=== PATIENT | female | born 1990 | race Caucasian/White ===

== ENCOUNTER 2016-12-24 23:39 | Emergency (ER) | payer OTHER | END 2016-12-25 03:25 | disposition home or self-care (01) | LOC: ER 23:39 | DX: N20.0 Calculus of kidney (principal); J20.9 Acute bronchitis, unspecified; F41.9 Anxiety disorder, unspecified; F17.210 Nicotine dependence, cigarettes, uncomplicated; Z91.010 Allergy to peanuts; Z91.041 Radiographic dye allergy status; Z91.018 Allergy to other foods; Z88.8 Allergy status to other drugs, medicaments and biological substances | CPT/HCPCS: 36415; 96361; 96374; 96375; 96376; J1885 ==

== ENCOUNTER 2017-01-06 08:37 | Emergency (ER) | payer OTHER | END 2017-01-06 15:35 | disposition home or self-care (01) | LOC: ER 08:37 | DX: N13.2 Hydronephrosis with renal and ureteral calculous obstruction (principal); F41.9 Anxiety disorder, unspecified; F17.210 Nicotine dependence, cigarettes, uncomplicated; Z87.442 Personal history of urinary calculi; Z91.010 Allergy to peanuts; Z91.041 Radiographic dye allergy status; Z91.018 Allergy to other foods; Z88.8 Allergy status to other drugs, medicaments and biological substances | CPT/HCPCS: 36415; 96361; 96365; 96375; 96376; J0696; J1200; J1885; J2060 ==

== ENCOUNTER → 2017-01-15 | Day surgery (SDC) | payer OTHER | END | disposition home or self-care (01) | LOC: SDC 09:36 | DX: N13.2 Hydronephrosis with renal and ureteral calculous obstruction (principal); N28.89 Other specified disorders of kidney and ureter; J45.909 Unspecified asthma, uncomplicated; F17.210 Nicotine dependence, cigarettes, uncomplicated; Z90.49 Acquired absence of other specified parts of digestive tract; Z79.899 Other long term (current) drug therapy; Z88.5 Allergy status to narcotic agent; Z88.8 Allergy status to other drugs, medicaments and biological substances; Z91.041 Radiographic dye allergy status; Z87.440 Personal history of urinary (tract) infections; Z86.69 Personal history of other diseases of the nervous system and sense organs | CPT/HCPCS: C1758; C1894; C2617; J1885; J2704; J2765; Q9967 ==

== ENCOUNTER 2017-01-16 18:03 | Observation (INO) | payer OTHER ==
[~2017-01-16] VITALS: Ht 170.2 cm; Wt 65.3 kg
== END 2017-01-18 15:45 | disposition home or self-care (01) ==
LOC: ER 18:03 → MED 21:47
PROVIDERS: ADMIT Internal Medicine
DX: N20.0 Calculus of kidney (principal); D72.829 Elevated white blood cell count, unspecified; E83.42 Hypomagnesemia; F41.9 Anxiety disorder, unspecified; F17.210 Nicotine dependence, cigarettes, uncomplicated; Z79.2 Long term (current) use of antibiotics; Z79.891 Long term (current) use of opiate analgesic; Z79.899 Other long term (current) drug therapy; Z90.49 Acquired absence of other specified parts of digestive tract; Z98.890 Other specified postprocedural states
CPT/HCPCS: 36415; 96361; 96365; 96372; 96374; 96375; 96376; C1894; G0378; J0696; J1885; J2060; J2704; Q9967

== ENCOUNTER 2017-01-19 22:49 | Emergency (ER) | payer OTHER | END 2017-01-20 01:10 | disposition home or self-care (01) | LOC: ER 22:49 | DX: R10.31 Right lower quadrant pain (principal); R10.32 Left lower quadrant pain; F41.9 Anxiety disorder, unspecified; F17.210 Nicotine dependence, cigarettes, uncomplicated; Z87.442 Personal history of urinary calculi; Z98.890 Other specified postprocedural states; Z90.49 Acquired absence of other specified parts of digestive tract; Z88.5 Allergy status to narcotic agent; Z91.010 Allergy to peanuts; Z91.041 Radiographic dye allergy status; Z91.048 Other nonmedicinal substance allergy status; Z88.8 Allergy status to other drugs, medicaments and biological substances; Z79.899 Other long term (current) drug therapy | CPT/HCPCS: 36415; 96361; 96374; 96375; J1885 ==

== ENCOUNTER 2017-01-20 19:26 | Emergency (ER) | payer OTHER | END 2017-01-20 23:10 | disposition home or self-care (01) | LOC: ER 19:26 | DX: N13.2 Hydronephrosis with renal and ureteral calculous obstruction (principal); F17.210 Nicotine dependence, cigarettes, uncomplicated; F41.9 Anxiety disorder, unspecified; Z90.49 Acquired absence of other specified parts of digestive tract | CPT/HCPCS: 36415; 96361; 96374; 96375; 96376; J1885; J2060; J2550 ==